=== PATIENT | male | born 1995 | race African-American/Black ===

== ENCOUNTER 2016-07-06 10:04 | Emergency (ER) | payer OTHER ==
[2016-07-06 10:39] LABS: URINE SOURCE CLEAN CATCH
[2016-07-06 10:47] LABS: URINE APPEARANCE CLEAR; URINE BILIRUBIN NEG (NEG); URINE BLOOD NEG (NEG); URINE COLOR YELLOW; URINE GLUCOSE 250 MG/DL (NEG); URINE KETONE TRACE (NEG); URINE LEUKOCYTE ESTERASE NEG (NEG); URINE NITRATE NEG (NEG); URINE PROTEIN NEG (NEG); URINE SPECIFIC GRAVITY 1.018 (1.003-1.035)
[2016-07-06 11:00] LABS: CULTURE INDICATED? NO
[2016-07-08 11:59] LABS: CHLAMYDIA TRACH Not Detected (Not Detected); N GONOR Not Detected (Not Detected)
== END 2016-07-06 11:15 | disposition home or self-care (01) ==
LOC: CED 10:04 → CFTX 10:04
PROVIDERS: Physician Assistant
DX: R86.8 Other abnormal findings in specimens from male genital organs (principal); E11.9 Type 2 diabetes mellitus without complications; Z79.4 Long term (current) use of insulin; F17.210 Nicotine dependence, cigarettes, uncomplicated
CPT/HCPCS: 81003; 87491; 87591; 99282